=== PATIENT | female | born 2000 | race Caucasian/White ===

== ENCOUNTER 2023-08-26 08:53 | Outpatient (CLI) | payer OTHER, SELFPAY | END 2023-08-26 08:54 | disposition home or self-care (01) | PROVIDERS: PCP Emergency Medicine; Visit Provider Family Medicine | DX: Z13.220 Encounter for screening for lipoid disorders (principal); Z13.228 Encounter for screening for other metabolic disorders | CPT/HCPCS: 80048; 80061 ==

== ENCOUNTER 2024-02-05 16:26 | Outpatient (CLI) | payer OTHER, SELFPAY | END 2024-02-05 16:27 | disposition home or self-care (01) | PROVIDERS: PCP Emergency Medicine; Visit Provider Emergency Medicine | DX: R40.4 Transient alteration of awareness (principal); I10 Essential (primary) hypertension; Z78.9 Other specified health status; Z51.81 Encounter for therapeutic drug level monitoring; Z79.890 Hormone replacement therapy | CPT/HCPCS: 80048; 82607; 84443 ==